=== PATIENT | male | born 1960 | race Caucasian/White ===

== ENCOUNTER 2016-10-07 22:08 | Outpatient (CLI) | payer BC | END 2016-10-07 22:09 | disposition home or self-care (01) | DX: C43.9 Malignant melanoma of skin, unspecified (principal) ==

== ENCOUNTER 2016-11-04 14:35 | Outpatient (CLI) | payer BC ==
[2016-11-04 14:57] LABS: BASOPHILS % (AUTO) 0.9 %; EOSINOPHILS # (AUTO) 0.1 10^3/uL (0.0-0.7); EOSINOPHILS % (AUTO) 1.2 %; HCT - HEMATOCRIT 40.7 % (42.0-52.0); LYMPHOCYTES # (AUTO) 1.1 10^3/uL (1.5-3.5); MEAN CORPUSCULAR HEMOGLOBIN 31.1 pg (27.0-31.0); MEAN CORPUSCULAR HGB CONC 34.5 g/dL (32.0-36.0); MEAN CORPUSCULAR VOLUME 90.3 fL (80.0-94.0); MEAN PLATELET VOLUME 8.8 fL (7.4-11.4); MONOCYTES # (AUTO) 0.4 10^3/uL (0.0-1.0); MONOCYTES % (AUTO) 9.2 %; NEUTROPHILS # (AUTO) 2.7 10^3/uL (1.5-6.6); NEUTROPHILS % (AUTO) 62.7 %; RED CELL DISTRIBUTION WIDTH 13.3 % (12.0-15.0); UNCORRECTED WHITE BLOOD COUNT 4.3 x10^3/uL; WHITE BLOOD COUNT 4.3 x10^3/uL (4.8-10.8)
[2016-11-04 15:11] LABS: BILIRUBIN,TOTAL 0.7 mg/dL (0.2-1.0); CALCIUM 9.4 mg/dL (8.5-10.3); CREATININE 0.9 mg/dL (0.6-1.2); POTASSIUM 4.7 mmol/L (3.5-5.0); TOTAL PROTEIN 6.7 g/dL (6.7-8.2)
== END 2016-11-04 14:36 | disposition home or self-care (01) ==
LOC: LAB 14:35
PROVIDERS: ATTEND Internal Medicine Hematology & Oncology
DX: C43.9 Malignant melanoma of skin, unspecified (principal)
CPT/HCPCS: 36415; 80053; 83735; 84443; 85025

== ENCOUNTER 2016-11-19 14:46 | Outpatient (CLI) | payer BC ==
[2016-11-19 18:13] LABS: ALBUMIN/GLOBULIN RATIO 1.9 (1.0-2.2); BILIRUBIN,TOTAL 0.8 mg/dL (0.2-1.0); CALCIUM 9.3 mg/dL (8.5-10.3); CREATININE 0.9 mg/dL (0.6-1.2); TOTAL PROTEIN 6.6 g/dL (6.7-8.2)
[2016-11-19 18:15] LABS: BILIRUBIN,URINE NEGATIVE (NEGATIVE); PH,URINE 6.5 PH (5.0-7.5)
[2016-11-19 18:31] LABS: BASOPHILS % (AUTO) 0.6 %; EOSINOPHILS # (AUTO) 0.1 10^3/uL (0.0-0.7); EOSINOPHILS % (AUTO) 1.3 %; HCT - HEMATOCRIT 41.9 % (42.0-52.0); HGB - HEMOGLOBIN 14.4 g/dL (14.0-18.0); LYMPHOCYTES # (AUTO) 1.1 10^3/uL (1.5-3.5); LYMPHOCYTES % (AUTO) 28.5 %; MEAN CORPUSCULAR HEMOGLOBIN 31.1 pg (27.0-31.0); MEAN CORPUSCULAR HGB CONC 34.3 g/dL (32.0-36.0); MEAN CORPUSCULAR VOLUME 90.6 fL (80.0-94.0); MEAN PLATELET VOLUME 9.2 fL (7.4-11.4); MONOCYTES # (AUTO) 0.3 10^3/uL (0.0-1.0); MONOCYTES % (AUTO) 8.3 %; NEUTROPHILS # (AUTO) 2.5 10^3/uL (1.5-6.6); NEUTROPHILS % (AUTO) 61.3 %; NUCLEATED RED BLOOD CELLS AUTO 0.1 /100WBC; RED BLOOD COUNT 4.63 10^6/uL (4.70-6.10); RED CELL DISTRIBUTION WIDTH 13.2 % (12.0-15.0)
[2016-11-19 19:10] LABS: WBC,URINE 0-3 /HPF (0-3)
== END 2016-11-19 14:47 | disposition home or self-care (01) ==
LOC: LAB.F 14:46
PROVIDERS: ATTEND Internal Medicine
DX: R53.83 Other fatigue (principal)
CPT/HCPCS: 36415; 80053; 81001; 84443; 85025

== ENCOUNTER 2016-12-30 15:35 | Outpatient (CLI) | payer BC | END 2016-12-30 15:36 | disposition home or self-care (01) | DX: C43.9 Malignant melanoma of skin, unspecified (principal) ==

== ENCOUNTER 2017-01-26 17:30 | Outpatient (CLI) | payer BC ==
[2017-01-26 17:51] LABS: BASOPHILS % (AUTO) 0.3 %; EOSINOPHILS % (AUTO) 0.6 %; HCT - HEMATOCRIT 40.6 % (42.0-52.0); HGB - HEMOGLOBIN 13.7 g/dL (14.0-18.0); LYMPHOCYTES # (AUTO) 1.1 10^3/uL (1.5-3.5); LYMPHOCYTES % (AUTO) 20.5 %; MEAN CORPUSCULAR HEMOGLOBIN 30.7 pg (27.0-31.0); MEAN CORPUSCULAR HGB CONC 33.8 g/dL (32.0-36.0); MEAN CORPUSCULAR VOLUME 90.8 fL (80.0-94.0); MEAN PLATELET VOLUME 8.4 fL (7.4-11.4); MONOCYTES # (AUTO) 0.4 10^3/uL (0.0-1.0); MONOCYTES % (AUTO) 8.7 %; NEUTROPHILS # (AUTO) 3.6 10^3/uL (1.5-6.6); NEUTROPHILS % (AUTO) 69.9 %; NUCLEATED RED BLOOD CELLS AUTO 0.1 /100WBC; RED BLOOD COUNT 4.47 10^6/uL (4.70-6.10); RED CELL DISTRIBUTION WIDTH 13.1 % (12.0-15.0); UNCORRECTED WHITE BLOOD COUNT 5.1 x10^3/uL; WHITE BLOOD COUNT 5.1 x10^3/uL (4.8-10.8)
[2017-01-26 18:02] LABS: BILIRUBIN,TOTAL 0.7 mg/dL (0.2-1.0); CALCIUM 8.9 mg/dL (8.5-10.3); CREATININE 0.9 mg/dL (0.6-1.2); POTASSIUM 4.2 mmol/L (3.5-5.0); TOTAL PROTEIN 6.3 g/dL (6.7-8.2)
== END 2017-01-26 17:31 | disposition home or self-care (01) ==
LOC: LAB 17:30
PROVIDERS: ATTEND Internal Medicine Hematology & Oncology
DX: C43.9 Malignant melanoma of skin, unspecified (principal)
CPT/HCPCS: 36415; 80053; 83735; 84443; 85025

== ENCOUNTER 2017-03-18 14:58 | Emergency (ER) | payer MEDICARE, OTHER ==
[2017-03-18 15:40] LABS: BASOPHILS % (AUTO) 0.3 %; EOSINOPHILS % (AUTO) 0.1 %; HCT - HEMATOCRIT 45.8 % (42.0-52.0); HGB - HEMOGLOBIN 15.4 g/dL (14.0-18.0); LYMPHOCYTES # (AUTO) 0.7 10^3/uL (1.5-3.5); LYMPHOCYTES % (AUTO) 9.6 %; MEAN CORPUSCULAR HEMOGLOBIN 30.3 pg (27.0-31.0); MEAN CORPUSCULAR HGB CONC 33.5 g/dL (32.0-36.0); MEAN CORPUSCULAR VOLUME 90.4 fL (80.0-94.0); MEAN PLATELET VOLUME 8.1 fL (7.4-11.4); MONOCYTES # (AUTO) 0.6 10^3/uL (0.0-1.0); MONOCYTES % (AUTO) 7.5 %; NEUTROPHILS # (AUTO) 6.4 10^3/uL (1.5-6.6); NEUTROPHILS % (AUTO) 82.5 %; RED BLOOD COUNT 5.07 10^6/uL (4.70-6.10); RED CELL DISTRIBUTION WIDTH 13.1 % (12.0-15.0); UNCORRECTED WHITE BLOOD COUNT 7.7 x10^3/uL; WHITE BLOOD COUNT 7.7 x10^3/uL (4.8-10.8)
[2017-03-18 15:51] LABS: ALBUMIN/GLOBULIN RATIO 1.8 (1.0-2.2); BILIRUBIN,TOTAL 1.3 mg/dL (0.2-1.0); CALCIUM 9.4 mg/dL (8.5-10.3); CREATININE 0.9 mg/dL (0.6-1.2); POTASSIUM 3.6 mmol/L (3.5-5.0); TOTAL PROTEIN 6.8 g/dL (6.7-8.2)
[2017-03-18] MEDS ORDERED: LIDOCAINE VISCOUS 2% 15 ML UDC MM STA (16:38)
[2017-03-18] MEDS ORDERED: MAG HYDROX/AL HYDROX/SIMETH 30 ML UDC PO STA (16:38)
--- NOTE | 2017-03-18 16:40 | ED Physician Documentation ---
PD HPI ABD PAIN - Stated complaint Stated Complaint: STOMACH PX - Chief complaint Chief Complaint: Abd Pain - History obtained from History obtained from: Patient - History of Present Illness Timing - onset: Other (56-year-old gentleman undergoing immunotherapy for melanoma, had a mesenteric metastasis that was removed a couple of years ago. Last night at 7 PM after a large meal developed severe sudden onset epigastric pain without radiation. It is a sharp burning pain that he had a few months ago and had a CT at that time that was negative and his doctor thought he had reflux.) Review of Systems Constitutional: denies: Fever, Chills Nose: denies: Rhinorrhea / runny nose, Congestion Cardiac: denies: Chest pain / pressure, Palpitations Respiratory: denies: Dyspnea, Cough GI: reports: Abdominal Pain, Nausea, Vomiting. denies: Constipation, Diarrhea, Hematemesis, Bloody / black stool PD PAST MEDICAL HISTORY - Past Medical History Past Medical History: Yes Cardiovascular: None Respiratory: None Neuro: None Endocrine/Autoimmune: None : None HEENT: None Psych: None Musculoskeletal: Osteoarthritis Other Past Medical History: melanoma since 2009 - Past Surgical History Past Surgical History: Yes General: Other - Present Medications Home Medications: Ambulatory Orders Medication Instructions Recorded Confirmed Immunotherapy Drug 03/18/17 - Allergies Allergies/Adverse Reactions: Allergies Allergy/AdvReac Type Severity Reaction Status Date / Time "narcotics" Allergy Unknown Uncoded 03/18/17 15:03 - Social History Does the pt smoke?: No Smoking Status: Never smoker Does the pt drink ETOH?: No Does the pt have substance abuse?: No - Immunizations Immunizations are current?: Yes - POLST Patient has POLST: No PD ED PE NORMAL - Vitals Vital signs reviewed: Yes - General General: Alert and oriented X 3, No acute distress - HEENT HEENT: Other (Left facial droop from prior melanoma surgery) - Cardiac Cardiac: RRR, No murmur - Respiratory Respiratory: No respiratory distress, Clear bilaterally - Abdomen Abdomen: Other (Minimally tender in the epigastrium without diffuse tenderness or surgical signs, soft with normal bowel tones.) - Back Back: No CVA TTP, No spinal TTP - Derm Derm: Normal color, Warm and dry - Extremities Extremities: No edema, No calf tenderness / cord - Neuro Neuro: Alert and oriented X 3, Normal speech Results - Vitals Vitals: Vital Signs - 24 hr 03/18/17 15:00 Temperature 36.6 C Heart Rate 77 Respiratory 18 Rate Blood Pressure 123/82 H O2 Saturation 99 Oxygen O2 Source Room air - Labs Labs: Laboratory Tests 03/18/17 03/18/17 15:30 15:30 WBC 7.7 RBC 5.07 Hgb 15.4 Hct 45.8 MCV 90.4 MCH 30.3 MCHC 33.5 RDW 13.1 Plt Count 229 MPV 8.1 Neut # 6.4 Lymph # 0.7 L [place] # 0.6 Eos # 0.0 Baso # 0.0 Absolute Nucleated RBC 0.00 Nucleated RBC % 0.0 Sodium 138 Potassium 3.6 Chloride 101 Carbon Dioxide 28 Anion Gap 9.0 BUN 22 H Creatinine 0.9 Estimated GFR (MDRD) 87 L Glucose 110 H Calcium 9.4 Total Bilirubin 1.3 H AST 19 ALT 20 Alkaline Phosphatase 54 Total Protein 6.8 Albumin 4.4 Globulin 2.4 Albumin/Globulin Ratio 1.8 Lipase 36 PD MEDICAL DECISION MAKING - ED course ED course: He has upper abdominal pain that is recurrent and seems most consistent with reflux. He was given a GI cocktail with significant improvement in his pain and he will continue the omeprazole, he declined other prescription pain medication. Departure - Departure Disposition: 01 Home, Self Care Clinical Impression: Gastritis Qualifiers: Gastritis type: unspecified gastritis Chronicity: acute Gastritis bleeding: without bleeding Qualified Code(s): K29.00 - Acute gastritis without bleeding Condition: Good Record reviewed to determine appropriate education?: Yes Instructions: ED Gastritis Comments: Continue the omeprazole, he should be better in another couple of days, return if worse. Call your doctor to arrange a follow-up appointment, make the next available appointment. In the interim, return anytime if worse or if new symptoms develop. Your blood pressure was elevated today on check into the emergency department. This does not mean that you have hypertension, it is a common phenomenon to come to the emergency department and have elevated blood pressure. I recommend that she see your primary care physician within the week to have it rechecked when you are feeling better.
[2017-03-18] MEDS ORDERED: LIDOCAINE VISCOUS 2% 15 ML UDC MM ONE (16:51)
[2017-03-18] MEDS ORDERED: MAG HYDROX/AL HYDROX/SIMETH 30 ML UDC ONE (16:51)
[2017-03-18] MEDS ORDERED: ONDANSETRON ODT 4 MG TABLET TL STA (17:06)
[2017-03-18 17:36] VITALS: BP 149/89
[2017-03-18] MEDS ORDERED: ONDANSETRON ODT 4 MG TABLET ONE (17:38)
== END 2017-03-18 17:38 | disposition home or self-care (01) ==
LOC: ED 14:58
DX: K29.00 Acute gastritis without bleeding (principal); C43.9 Malignant melanoma of skin, unspecified; Z85.89 Personal history of malignant neoplasm of other organs and systems; M19.90 Unspecified osteoarthritis, unspecified site; R03.0 Elevated blood-pressure reading, without diagnosis of hypertension
CPT/HCPCS: 36415; 80053; 83690; 85025; 99283; A9270; Q0162

== ENCOUNTER 2017-04-06 18:07 | Outpatient (CLI) | payer MEDICARE, OTHER ==
[2017-04-06 18:33] LABS: BASOPHILS % (AUTO) 0.7 %; EOSINOPHILS # (AUTO) 0.1 10^3/uL (0.0-0.7); EOSINOPHILS % (AUTO) 1.2 %; HCT - HEMATOCRIT 42.8 % (42.0-52.0); HGB - HEMOGLOBIN 14.1 g/dL (14.0-18.0); LYMPHOCYTES # (AUTO) 1.2 10^3/uL (1.5-3.5); LYMPHOCYTES % (AUTO) 24.6 %; MEAN CORPUSCULAR HEMOGLOBIN 30.5 pg (27.0-31.0); MEAN CORPUSCULAR VOLUME 92.2 fL (80.0-94.0); MEAN PLATELET VOLUME 8.5 fL (7.4-11.4); MONOCYTES # (AUTO) 0.5 10^3/uL (0.0-1.0); NEUTROPHILS # (AUTO) 3.1 10^3/uL (1.5-6.6); NEUTROPHILS % (AUTO) 63.5 %; RED BLOOD COUNT 4.64 10^6/uL (4.70-6.10); RED CELL DISTRIBUTION WIDTH 13.1 % (12.0-15.0); UNCORRECTED WHITE BLOOD COUNT 4.8 x10^3/uL; WHITE BLOOD COUNT 4.8 x10^3/uL (4.8-10.8)
[2017-04-06 18:43] LABS: ALBUMIN/GLOBULIN RATIO 1.8 (1.0-2.2); BILIRUBIN,TOTAL 0.8 mg/dL (0.2-1.0); CALCIUM 9.2 mg/dL (8.5-10.3); CREATININE 0.9 mg/dL (0.6-1.2); POTASSIUM 3.8 mmol/L (3.5-5.0); TOTAL PROTEIN 6.8 g/dL (6.7-8.2)
== END 2017-04-06 18:08 | disposition home or self-care (01) ==
LOC: LAB 18:07
PROVIDERS: ATTEND Internal Medicine Hematology & Oncology
DX: C43.9 Malignant melanoma of skin, unspecified (principal)
CPT/HCPCS: 36415; 80053; 85025

== ENCOUNTER 2017-05-18 21:35 | Outpatient (CLI) | payer MEDICARE, OTHER ==
[2017-05-18 21:53] LABS: BASOPHILS % (AUTO) 0.5 %; EOSINOPHILS % (AUTO) 0.9 %; HCT - HEMATOCRIT 41.3 % (42.0-52.0); HGB - HEMOGLOBIN 13.9 g/dL (14.0-18.0); LYMPHOCYTES % (AUTO) 19.7 %; MEAN CORPUSCULAR HEMOGLOBIN 30.8 pg (27.0-31.0); MEAN CORPUSCULAR HGB CONC 33.8 g/dL (32.0-36.0); MEAN CORPUSCULAR VOLUME 91.1 fL (80.0-94.0); MEAN PLATELET VOLUME 8.7 fL (7.4-11.4); MONOCYTES # (AUTO) 0.5 10^3/uL (0.0-1.0); MONOCYTES % (AUTO) 9.6 %; NEUTROPHILS # (AUTO) 3.7 10^3/uL (1.5-6.6); NEUTROPHILS % (AUTO) 69.3 %; RED BLOOD COUNT 4.53 10^6/uL (4.70-6.10); UNCORRECTED WHITE BLOOD COUNT 5.3 x10^3/uL; WHITE BLOOD COUNT 5.3 x10^3/uL (4.8-10.8)
[2017-05-18 22:05] LABS: ALBUMIN/GLOBULIN RATIO 1.7 (1.0-2.2); BILIRUBIN,TOTAL 0.7 mg/dL (0.2-1.0); CREATININE 0.9 mg/dL (0.6-1.2); POTASSIUM 3.8 mmol/L (3.5-5.0); TOTAL PROTEIN 6.3 g/dL (6.7-8.2)
== END 2017-05-18 21:36 | disposition home or self-care (01) ==
LOC: LAB 21:35
PROVIDERS: ATTEND Internal Medicine Hematology & Oncology
DX: C43.9 Malignant melanoma of skin, unspecified (principal)
CPT/HCPCS: 80053; 83735; 84443; 85025

== ENCOUNTER 2017-09-03 16:47 | Outpatient (CLI) | payer MEDICARE, OTHER ==
[2017-09-03 17:31] LABS: ALBUMIN 4.1 g/dL (3.2-5.5); ALBUMIN/GLOBULIN RATIO 1.9 (1.0-2.2); BILIRUBIN,TOTAL 0.7 mg/dL (0.2-1.0); CALCIUM 8.6 mg/dL (8.5-10.3); CREATININE 0.9 mg/dL (0.6-1.2); TOTAL PROTEIN 6.3 g/dL (6.7-8.2)
== END 2017-09-03 16:48 | disposition home or self-care (01) ==
LOC: LAB 16:47
DX: C43.30 Malignant melanoma of unspecified part of face (principal)
CPT/HCPCS: 36415; 80053

== ENCOUNTER 2018-03-15 18:53 | Outpatient (CLI) | payer MEDICARE, OTHER ==
[2018-03-15 19:14] LABS: BASOPHILS % (AUTO) 0.9 %; EOSINOPHILS % (AUTO) 0.9 %; HGB - HEMOGLOBIN 13.4 g/dL (14.0-18.0); LYMPHOCYTES # (AUTO) 0.8 10^3/uL (1.5-3.5); LYMPHOCYTES % (AUTO) 20.8 %; MEAN CORPUSCULAR HEMOGLOBIN 31.4 pg (27.0-31.0); MEAN CORPUSCULAR HGB CONC 34.3 g/dL (32.0-36.0); MEAN CORPUSCULAR VOLUME 91.4 fL (80.0-94.0); MONOCYTES # (AUTO) 0.3 10^3/uL (0.0-1.0); MONOCYTES % (AUTO) 8.6 %; NEUTROPHILS # (AUTO) 2.8 10^3/uL (1.5-6.6); NEUTROPHILS % (AUTO) 68.8 %; PLT - PLATELET COUNT 216 10^3/uL (130-450); RED BLOOD COUNT 4.27 10^6/uL (4.70-6.10); RED CELL DISTRIBUTION WIDTH 13.2 % (12.0-15.0)
[2018-03-15 19:26] LABS: ALBUMIN 3.9 g/dL (3.2-5.5); ALBUMIN/GLOBULIN RATIO 1.9 (1.0-2.2); ALKALINE PHOSPHATASE 50 IU/L (42-121); ALT ALANINE AMINOTRANSFERASE 19 IU/L (10-60); AST ASPARTATE AMINOTRANSFERASE 23 IU/L (10-42); BILIRUBIN,TOTAL 0.6 mg/dL (0.2-1.0); BUN - BLOOD UREA NITROGEN 14 mg/dL (6-20); CALCIUM 8.9 mg/dL (8.5-10.3); CARBON DIOXIDE - CO2 30 mmol/L (21-32); CHLORIDE 102 mmol/L (101-111); GFR - MDRD 77 (>89); GLUCOSE 80 mg/dL (70-100); SODIUM 141 mmol/L (135-145)
== END 2018-03-15 18:54 | disposition home or self-care (01) ==
LOC: LAB 18:53
PROVIDERS: ATTEND Internal Medicine Hematology & Oncology
DX: C43.30 Malignant melanoma of unspecified part of face (principal)
CPT/HCPCS: 36415; 80053; 84443; 85025

== ENCOUNTER 2018-05-24 15:23 | Outpatient (CLI) | payer MEDICARE, OTHER ==
[2018-05-24 18:14] LABS: ALBUMIN 4.1 g/dL (3.2-5.5); ALBUMIN/GLOBULIN RATIO 1.8 (1.0-2.2); BILIRUBIN,TOTAL 0.9 mg/dL (0.2-1.0); CREATININE 0.9 mg/dL (0.6-1.2); TOTAL PROTEIN 6.4 g/dL (6.7-8.2)
[2018-05-24 19:37] LABS: BASOPHILS % (AUTO) 0.6 %; EOSINOPHILS % (AUTO) 0.7 %; HGB - HEMOGLOBIN 13.7 g/dL (14.0-18.0); LYMPHOCYTES % (AUTO) 22.6 %; MEAN CORPUSCULAR HGB CONC 33.3 g/dL (32.0-36.0); MEAN PLATELET VOLUME 9.1 fL (7.4-11.4); MONOCYTES # (AUTO) 0.4 10^3/uL (0.0-1.0); MONOCYTES % (AUTO) 8.8 %; NEUTROPHILS # (AUTO) 2.9 10^3/uL (1.5-6.6); NEUTROPHILS % (AUTO) 67.3 %; PLT - PLATELET COUNT 197 10^3/uL (130-450); RED BLOOD COUNT 4.44 10^6/uL (4.70-6.10); RED CELL DISTRIBUTION WIDTH 13.1 % (12.0-15.0); WHITE BLOOD COUNT 4.3 x10^3/uL (4.8-10.8)
== END 2018-05-24 15:24 | disposition home or self-care (01) ==
LOC: LAB.F 15:23
DX: Z51.11 Encounter for antineoplastic chemotherapy (principal); C43.30 Malignant melanoma of unspecified part of face
CPT/HCPCS: 36415; 80053; 85025

== ENCOUNTER 2018-06-07 17:03 | Outpatient (CLI) | payer MEDICARE, OTHER ==
[2018-06-07 17:21] LABS: BASOPHILS % (AUTO) 0.6 %; EOSINOPHILS % (AUTO) 0.9 %; HGB - HEMOGLOBIN 14.5 g/dL (14.0-18.0); LYMPHOCYTES # (AUTO) 1.1 10^3/uL (1.5-3.5); LYMPHOCYTES % (AUTO) 22.5 %; MEAN CORPUSCULAR HEMOGLOBIN 30.9 pg (27.0-31.0); MEAN CORPUSCULAR HGB CONC 33.4 g/dL (32.0-36.0); MEAN CORPUSCULAR VOLUME 92.5 fL (80.0-94.0); MEAN PLATELET VOLUME 8.4 fL (7.4-11.4); MONOCYTES # (AUTO) 0.5 10^3/uL (0.0-1.0); MONOCYTES % (AUTO) 9.2 %; NEUTROPHILS # (AUTO) 3.3 10^3/uL (1.5-6.6); NEUTROPHILS % (AUTO) 66.8 %; PLT - PLATELET COUNT 208 10^3/uL (130-450); RED BLOOD COUNT 4.69 10^6/uL (4.70-6.10); RED CELL DISTRIBUTION WIDTH 13.2 % (12.0-15.0); WHITE BLOOD COUNT 4.9 x10^3/uL (4.8-10.8)
[2018-06-07 17:33] LABS: ALBUMIN 4.3 g/dL (3.2-5.5); ALBUMIN/GLOBULIN RATIO 1.9 (1.0-2.2); BILIRUBIN,TOTAL 0.7 mg/dL (0.2-1.0); TOTAL PROTEIN 6.6 g/dL (6.7-8.2)
== END 2018-06-07 17:04 | disposition home or self-care (01) ==
LOC: LAB 17:03
PROVIDERS: ATTEND Internal Medicine Hematology
DX: C43.30 Malignant melanoma of unspecified part of face (principal); Z51.11 Encounter for antineoplastic chemotherapy
CPT/HCPCS: 36415; 80053; 85025

== ENCOUNTER 2018-07-19 09:07 | Outpatient (CLI) | payer MEDICARE, OTHER ==
[2018-07-19 17:43] LABS: BASOPHILS % (AUTO) 0.5 %; EOSINOPHILS % (AUTO) 1.3 %; LYMPHOCYTES # (AUTO) 0.8 10^3/uL (1.5-3.5); LYMPHOCYTES % (AUTO) 25.6 %; MEAN CORPUSCULAR HEMOGLOBIN 30.9 pg (27.0-31.0); MEAN CORPUSCULAR HGB CONC 33.1 g/dL (32.0-36.0); MEAN CORPUSCULAR VOLUME 93.3 fL (80.0-94.0); MEAN PLATELET VOLUME 9.3 fL (7.4-11.4); MONOCYTES # (AUTO) 0.4 10^3/uL (0.0-1.0); MONOCYTES % (AUTO) 11.4 %; NEUTROPHILS # (AUTO) 1.9 10^3/uL (1.5-6.6); NEUTROPHILS % (AUTO) 61.2 %; PLT - PLATELET COUNT 172 10^3/uL (130-450); RED BLOOD COUNT 4.52 10^6/uL (4.70-6.10); RED CELL DISTRIBUTION WIDTH 13.1 % (12.0-15.0); WHITE BLOOD COUNT 3.1 x10^3/uL (4.8-10.8)
[2018-07-19 17:58] LABS: ALBUMIN 3.7 g/dL (3.2-5.5); ALBUMIN/GLOBULIN RATIO 1.6 (1.0-2.2); BILIRUBIN,TOTAL 0.6 mg/dL (0.2-1.0); CALCIUM 8.6 mg/dL (8.5-10.3)
== END 2018-07-19 09:08 | disposition home or self-care (01) ==
LOC: LAB.F 09:07
DX: C43.30 Malignant melanoma of unspecified part of face (principal); D89.89 Other specified disorders involving the immune mechanism, not elsewhere classified
CPT/HCPCS: 36415; 80053; 84443; 85025

== ENCOUNTER 2018-08-16 12:38 | Outpatient (CLI) | payer MEDICARE, OTHER ==
[2018-08-16 18:43] LABS: BASOPHILS % (AUTO) 0.5 %; EOSINOPHILS % (AUTO) 0.7 %; LYMPHOCYTES % (AUTO) 18.7 %; MEAN CORPUSCULAR HEMOGLOBIN 30.9 pg (27.0-31.0); MEAN CORPUSCULAR VOLUME 93.5 fL (80.0-94.0); MONOCYTES # (AUTO) 0.4 10^3/uL (0.0-1.0); MONOCYTES % (AUTO) 8.6 %; NEUTROPHILS # (AUTO) 3.6 10^3/uL (1.5-6.6); NEUTROPHILS % (AUTO) 71.5 %; PLT - PLATELET COUNT 196 10^3/uL (130-450); RED BLOOD COUNT 4.53 10^6/uL (4.70-6.10); RED CELL DISTRIBUTION WIDTH 13.4 % (12.0-15.0); WHITE BLOOD COUNT 5.1 x10^3/uL (4.8-10.8)
[2018-08-16 18:45] LABS: ALBUMIN/GLOBULIN RATIO 1.7 (1.0-2.2); BILIRUBIN,TOTAL 0.8 mg/dL (0.2-1.0); CALCIUM 8.9 mg/dL (8.5-10.3); CREATININE 0.9 mg/dL (0.6-1.2); TOTAL PROTEIN 6.4 g/dL (6.7-8.2)
== END 2018-08-16 12:39 | disposition home or self-care (01) ==
LOC: LAB.F 12:38
PROVIDERS: ATTEND Internal Medicine
DX: C43.30 Malignant melanoma of unspecified part of face (principal); D89.89 Other specified disorders involving the immune mechanism, not elsewhere classified
CPT/HCPCS: 36415; 80053; 84443; 85025

== ENCOUNTER 2019-03-01 08:37 | Emergency (ER) | payer MEDICARE, OTHER ==
[2019-03-01 10:05] VITALS: BP 119/78
--- NOTE | 2019-03-01 10:43 | ED Physician Documentation ---
PD HPI MALE - Stated complaint Stated Complaint: BODY PX - Chief complaint Chief Complaint: Abd Pain - History obtained from History obtained from: Patient - History of Present Illness Timing - onset: How many days ago (10) Timing - duration: Days (10) Timing - details: Gradual onset, Still present Associated symptoms: Testiclar pain, Scrotal swelling. No: Dysuria, Urinary frequency, Unable to urinate, Hematuria, Discharge, Genital sore / lesion, Abdominal pain, Back pain, Indwelling catheter PD HPI MALE CONTRIB FACTORS: Not sexually active Similar symptoms before: Has not had sx before Recently seen: Not recently seen - Additional information Additional information: 58-year-old male with a 10-year history of melanoma has been undergoing immunotherapy and had his last immunotherapy in September of this year. He is now developed some swelling and tenderness to his testicle it is now moved to the right side from the left side and he is not having other specific symptoms. He denies any discharge denies any urinary urgency or frequency. Review of Systems Constitutional: denies: Fever Eyes: denies: Decreased vision Ears: denies: Ear pain Nose: denies: Congestion Throat: denies: Sore throat Cardiac: denies: Chest pain / pressure Respiratory: denies: Dyspnea, Cough GI: reports: Abdominal Pain, Diarrhea. denies: Nausea, Vomiting : denies: Dysuria, Frequency PD PAST MEDICAL HISTORY - Past Medical History Cardiovascular: None Respiratory: None Endocrine/Autoimmune: None : None HEENT: None Psych: None Musculoskeletal: Osteoarthritis - Past Surgical History Past Surgical History: Yes General: Other - Present Medications Home Medications: Ambulatory Orders Medication Instructions Recorded Confirmed Immunotherapy Drug 03/18/17 Doxycycline Hyclate 100 mg PO BID #20 capsule 03/01/19 - Allergies Allergies/Adverse Reactions: Allergies Allergy/AdvReac Type Severity Reaction Status Date / Time "narcotics" Allergy Unknown Uncoded 03/18/17 15:03 - Social History Does the pt smoke?: No Smoking Status: Never smoker Does the pt drink ETOH?: No Does the pt have substance abuse?: No - Immunizations Immunizations are current?: Yes - POLST Patient has POLST: No PD ED PE NORMAL - Vitals Vital signs reviewed: Yes (normal ) - General General: Alert and oriented X 3, No acute distress, Well developed/nourished - HEENT HEENT: Atraumatic, PERRL, EOMI - Respiratory Respiratory: No respiratory distress - Male Male : Other (There is swelling to the right epididymal appendix and there is some swelling without tenderness to the left epididymal appendix) - Derm Derm: Normal color, Warm and dry, No rash - Extremities Extremities: No deformity, No edema - Neuro Neuro: Alert and oriented X 3, appeals and generalist clerk 2-12 intact, No motor deficit, No sensory deficit, Normal speech Eye Opening: Spontaneous Motor: Obeys Commands Verbal: Oriented GCS Score: 15 - Psych Psych: Normal mood, Normal affect Results - Vitals Vitals: Vital Signs - 24 hr 03/01/19 03/01/19 08:44 10:03 Temperature 36.5 C Heart Rate 80 62 Respiratory 14 16 Rate Blood Pressure 123/67 119/78 O2 Saturation 100 96 Oxygen O2 Source Room air - Labs Labs: Laboratory Tests 03/01/19 10:00 Urine Color YELLOW Urine Clarity CLEAR Urine pH 6.5 Ur Specific [place] 1.020 Urine Protein NEGATIVE Urine Glucose (UA) NEGATIVE Urine Ketones TRACE Urine Occult Blood NEGATIVE Urine Nitrite NEGATIVE Urine Bilirubin NEGATIVE Urine Urobilinogen 1 (NORMAL) Ur Leukocyte Esterase NEGATIVE Ur Microscopic Review NOT INDICATED Urine Culture Comments NOT INDICATED - Rads (name of study) ultrasound testicle Radiology: Prelim report reviewed (Impression 1. Microlithiasis. The patient has risk factors for testicular cancer referral to urologist for evaluation and determination of optimal follow-up strategies recommended. In absence of risk factors for testicular cancer no further radiologic evaluation needed. Small left epididymal cyst small left varicocele small bilateral hydroceles.), EMP read indepedently, See rad report PD MEDICAL DECISION MAKING - ED course Complexity details: reviewed results, re-evaluated patient, considered differential, d/w patient ED course: 58-year-old male with stage IV melanoma has developed right testicular pain he does have some tenderness to the epididymis and he is requested imaging procedures to be done. The imaging is concerning for the possibility of testicular cancer and this is shared with the patient we will treat him with some doxycycline and have him follow-up with a urologist. Departure - Departure Disposition: 01 Home, Self Care Clinical Impression: Acute epididymitis Condition: Stable Instructions: ED Epididymitis Follow-Up: Satish Pope MD [Primary Care Provider] - Mike Greenfield MD [Physician No Access] - Cathleen Schroeder MD [Physician No Access] - Prescriptions: Doxycycline Hyclate 100 mg PO BID #20 capsule Comments: Today there are subtle findings on your ultrasound concerning for the possibility of testicular cancer and follow-up with urologist as recommended.
[2019-03-01 11:12] LABS: BILIRUBIN,URINE NEGATIVE (NEGATIVE); GLUCOSE, URINE (UA) NEGATIVE (NEGATIVE); KETONES,URINE (UA) TRACE mg/dL (NEGATIVE); LEUKOCYTE ESTERASE, URINE NEGATIVE (NEGATIVE); NITRITE,URINE NEGATIVE (NEGATIVE); OCCULT BLOOD,URINE NEGATIVE (NEGATIVE); PH,URINE 6.5 PH (5.0-7.5); PROTEIN,URINE NEGATIVE (NEGATIVE); UROBILINOGEN,URINE 1 (NORMAL) E.U./dL (NORMAL)
[2019-03-01 11:14] LABS: CLARITY,URINE CLEAR (CLEAR)
--- NOTE | 2019-03-01 11:31 | Ultrasound Report ---
Reason: right testicle pain swelling Procedure Date: 03/01/2019 Accession Number: [id number] / [id number] Procedure: US - Testicle w/Doppler Limited CPT Code: FULL RESULT: EXAM: SCROTAL ULTRASOUND EXAM DATE: 03/01/2019 11:18 AM. CLINICAL HISTORY: Right testicle pain swelling. COMPARISON: None. TECHNIQUE: Real-time scanning was performed with static images obtained. Color-flow images were utilized. FINDINGS: Right: Testis: 6.1 x 2.7 x 4.1 cm. Normal size . Microlithiasis . No mass, or abnormal blood flow. Epididymis: 3.2 x 1.1 x 1 cm. Normal size and echotexture. No mass or abnormal blood flow. Hydrocele: Small Varicocele: None. Left: Testis: 5.7 x 2.3 x 4.3 cm. Normal size and . Microlithiasis. No mass, or abnormal blood flow. Epididymis: 2.8 x 1.1 x 1.5 cm. 0.3 cm epididymal cyst Normal size and echotexture. No mass or abnormal blood flow. Hydrocele: Small Varicocele: Small IMPRESSION: 1. Microlithiasis. If the patient has risk factors for testicular cancer referral to urologist for evaluation and determination of an optimal follow-up strategies recommended. In the absence of risk factors for testicular cancer no further radiological evaluation needed. 2. Small left epididymal cyst. Small left varicocele 3. Small bilateral hydroceles RADIA
== END 2019-03-01 12:01 | disposition home or self-care (01) ==
LOC: ED 08:37
DX: N45.1 Epididymitis (principal); N50.3 Cyst of epididymis; N43.3 Hydrocele, unspecified; Z85.820 Personal history of malignant melanoma of skin
CPT/HCPCS: 76870; 81001; 81003; 87086; 93976; 99284

== ENCOUNTER 2019-04-04 22:51 | Emergency (ER) | payer MEDICARE, OTHER ==
--- NOTE | 2019-04-04 23:28 | ED Physician Documentation ---
PD HPI NVD - Stated complaint Stated Complaint: ABD PX/CHILLS/NAUSEA - Chief complaint Chief Complaint: Abd Pain - History obtained from History obtained from: Patient - History of Present Illness Timing - onset: How many hours ago (4-5) Timing - duration: Hours (4-5) Timing - details: Abrupt onset, Still present (After dinner he had an onset of feeling nausea and upper abdominal fullness. He thought it was an irritated stomach of gastritis and tried some antacid without any improvement. He had an episode of vomiting without any noted blood. He continues with a crampy feeling and fullness as well as nausea.) Associated symptoms: Abdominal pain, Loss of appetite. No: Fever, Hematemesis Contributing factors: No: Sick contact, Bad food, Travel Similar symptoms before: No diagnosis (He has had episodes similar to this intermittently in the past. Has happened a few times over the past several months will come on an onset commonly after eating to be associated with the same upper abdominal fullness and nausea with some vomiting. He will have some antacids and clear fluids and soft food and typically will resolve in about a day. He had been diagnosed with gastritis at one point in the past and felt similar so he presumed it was irritation from eating. There is no prior history of gallbladder problems. He has had prior mesenteric melanoma resection with a partial small bowel resection several years ago without any recurrence of tumor.) Recently seen: Not recently seen Review of Systems Constitutional: denies: Fever, Chills Nose: denies: Rhinorrhea / runny nose, Congestion Throat: denies: Sore throat Cardiac: denies: Chest pain / pressure Respiratory: denies: Dyspnea, Cough GI: reports: Abdominal Pain, Nausea, Vomiting. denies: Abdominal Swelling, Constipation, Diarrhea : denies: Dysuria, Frequency PD PAST MEDICAL HISTORY - Past Medical History Past Medical History: Yes Cardiovascular: None Respiratory: None Neuro: None Endocrine/Autoimmune: None GI: None : None HEENT: None Psych: None Musculoskeletal: Osteoarthritis Derm: Other Other Past Medical History: melonoma - Past Surgical History Past Surgical History: Yes General: Other - Present Medications Home Medications: Ambulatory Orders Medication Instructions Recorded Confirmed Immunotherapy Drug 03/18/17 Doxycycline Hyclate 100 mg PO BID #20 capsule 03/01/19 Famotidine 20 mg PO DAILY #30 tablet 04/05/19 Lidocaine Viscous 2% [Xylocaine 5 ml PO Q4H PRN #100 ml 04/05/19 Viscous 2%] Ondansetron Odt [Zofran] 4 mg TL Q6H PRN #20 tablet 04/05/19 - Allergies Allergies/Adverse Reactions: Allergies Allergy/AdvReac Type Severity Reaction Status Date / Time "narcotics" Allergy Unknown Uncoded 03/18/17 15:03 - Social History Does the pt smoke?: No Smoking Status: Never smoker Does the pt drink ETOH?: Yes Does the pt have substance abuse?: No - Immunizations Immunizations are current?: Yes - POLST Patient has POLST: No PD ED PE NORMAL - Vitals Vital signs reviewed: Yes - General General: Alert and oriented X 3, No acute distress, Well developed/nourished - HEENT HEENT: Pharynx benign - Neck Neck: Supple, no meningeal sign, No adenopathy - Cardiac Cardiac: RRR, No murmur - Respiratory Respiratory: Clear bilaterally - Abdomen Abdomen: Soft, Non distended, No organomegaly, Other (The patient has tenderness in the epigastric area without any guarding percussion or rebound tenderness. Bowel sounds are hyperactive but not tympanitic in the upper abdomen. Lower abdomen bowel sounds are normally present. The right upper quadrant itself is not particularly tender and there is a negative Rubalcava sign. There is no CVA tenderness.) - Male Male : Deferred - Rectal Rectal: Deferred - Back Back: No CVA TTP - Derm Derm: Normal color - Extremities Extremities: No tenderness to palpate, Normal ROM s pain, No edema, No calf tenderness / cord - Neuro Neuro: Alert and oriented X 3, No motor deficit, Normal speech Results - Vitals Vitals: Vital Signs - 24 hr 04/04/19 04/05/19 04/05/19 23:01 01:56 04:07 Temperature 36.8 C 36.8 C Heart Rate 79 75 74 Respiratory 18 16 16 Rate Blood Pressure 137/82 H 142/67 H 128/69 O2 Saturation 99 98 93 04/05/19 06:08 Temperature 37.0 C Heart Rate 76 Respiratory 16 Rate Blood Pressure 117/70 O2 Saturation 96 Oxygen O2 Source Room air - Labs Labs: Laboratory Tests 04/05/19 04/05/19 00:20 00:20 WBC 9.1 RBC 4.45 L Hgb 13.7 L Hct 41.0 L MCV 92.1 MCH 30.8 MCHC 33.4 RDW 12.6 Plt Count 177 MPV 10.5 Neut # (Auto) 7.7 H Lymph # (Auto) 0.6 L [place] # (Auto) 0.6 Eos # (Auto) 0.0 Baso # (Auto) 0.0 Absolute Nucleated RBC 0.00 Nucleated RBC % 0.0 Sodium 140 Potassium 3.5 Chloride 102 Carbon Dioxide 27 Anion Gap 11.0 BUN 23 H Creatinine 0.9 Estimated GFR (MDRD) 87 L Glucose 120 H Calcium 9.2 Total Bilirubin 0.7 AST 22 ALT 20 Alkaline Phosphatase 44 Total Protein 6.3 L Albumin 3.9 Globulin 2.4 Albumin/Globulin Ratio 1.6 Lipase 28 - Rads (name of study) abd CT Radiology: Prelim report reviewed (Partial small bowel obstruction with transition around the mid small bowel. Is around the area of his anastomosis. There is moderate amount of stool just distal to that.), See rad report PD MEDICAL DECISION MAKING - ED course Complexity details: reviewed results (The CT was consistent with a likely partial small bowel obstruction. However subsequent to the CT scan he was actually feeling improved enough to drink fluids and feel comfortable with less nausea. Shared decision was to try going home with treatment there.), re- evaluated patient (The patient did feel better with antiemetic and fluids. He did actually feel better with a GI cocktail as well. However he still has some nausea and a feeling of fullness in the upper abdomen. We discussed further testing with him. Initially he was thinking he would try just going home but then had some increased nausea again. We opted on CT scan to evaluate for partial obstruction as well as gallstones or pancreatic or other conditions as well.), considered differential (He had had similar episodes in the past lasting though it would resolve with some antacids and just clear fluids. He had presumed it was gastritis. There is no history of gallbladder problems in the past. However he has had previous abdominal surgery and has some increased bowel sounds in the upper abdomen. There is no distention per se. Consideration could also be a partial bowel obstruction. Will give IV fluids and medications and reassess after some lab tests as well. Deferred imaging initially to see if he just improves.), d/w patient Departure - Departure Disposition: 01 Home, Self Care Clinical Impression: Upper abdominal pain, Partial obstruction of small intestine Nausea and vomiting Qualifiers: Vomiting type: unspecified Vomiting Intractability: non-intractable Qualified Code(s): R11.2 - Nausea with vomiting, unspecified Condition: Stable Record reviewed to determine appropriate education?: Yes Instructions: ED Abdominal Pain Adhesions Follow-Up: Satish Pope MD [Primary Care Provider] - Prescriptions: Famotidine 20 mg PO DAILY #30 tablet Lidocaine Viscous 2% [Xylocaine Viscous 2%] 5 ml PO Q4H PRN #100 ml PRN Reason: Pain Ondansetron Odt [Zofran] 4 mg TL Q6H PRN #20 tablet PRN Reason: Nausea / Vomiting Comments: Your blood tests appear normal so no suggestion of pancreas or liver problems. Your white count is normal so not suggesting an acute infection. There may be some irritation of the stomach (gastritis). Continue with some antacids and bland food and add lidocaine if needed periodically. However the Main problem is a partial blockage of the intestinal flow. This can be from some food stagnation around the prior anastomosis or it can be some scar tissue kinking the flow of the intestine. You seemed to be improving here so this may be treatable at home with clear liquid diet and bland foods for the rest of the day along with adding a dose of MiraLAX 2-3 times through the day to improve intestinal flow. Add ondansetron if needed for nausea. Famotidine acid reducing medicine daily for the next week or two. Recheck if not improved well over the course of the day and return if worsening (Increased nausea, repetitive vomiting, abdominal pain or distention, fevers, other concerns). Discharge Date/Time: 04/05/19 06:41
[2019-04-05] MEDS ORDERED: LIDOCAINE VISCOUS 2% 15 ML UDC MM STA ×2 (00:07→02:06)
[2019-04-05] MEDS ORDERED: ONDANSETRON 4 MG/2 ML VIAL IVP STA ×2 (00:07→02:38)
[2019-04-05] MEDS ORDERED: MORPHINE 10 MG/ML VIAL IVP STA (00:07)
[2019-04-05] MEDS ORDERED: MAG HYDROX/AL HYDROX/SIMETH 30 ML UDC PO STA ×2 (00:07→02:06)
[2019-04-05] MEDS ORDERED: SODIUM CHLORIDE 0.9% 1,000 ML IV ONE ×2 (00:07→03:54)
[2019-04-05 00:31] LABS: BASOPHILS % (AUTO) 0.3 %; EOSINOPHILS % (AUTO) 0.1 %; HGB - HEMOGLOBIN 13.7 g/dL (14.0-18.0); LYMPHOCYTES # (AUTO) 0.6 10^3/uL (1.5-3.5); LYMPHOCYTES % (AUTO) 6.9 %; MEAN CORPUSCULAR HEMOGLOBIN 30.8 pg (27.0-31.0); MEAN CORPUSCULAR HGB CONC 33.4 g/dL (32.0-36.0); MEAN CORPUSCULAR VOLUME 92.1 fL (80.0-94.0); MEAN PLATELET VOLUME 10.5 fL (7.4-11.4); MONOCYTES # (AUTO) 0.6 10^3/uL (0.0-1.0); MONOCYTES % (AUTO) 6.9 %; NEUTROPHILS # (AUTO) 7.7 10^3/uL (1.5-6.6); NEUTROPHILS % (AUTO) 85.4 %; PLT - PLATELET COUNT 177 10^3/uL (130-450); RED BLOOD COUNT 4.45 10^6/uL (4.70-6.10); RED CELL DISTRIBUTION WIDTH 12.6 % (12.0-15.0); WHITE BLOOD COUNT 9.1 x10^3/uL (4.8-10.8)
[2019-04-05 00:45] LABS: ALBUMIN 3.9 g/dL (3.2-5.5); ALBUMIN/GLOBULIN RATIO 1.6 (1.0-2.2); BILIRUBIN,TOTAL 0.7 mg/dL (0.2-1.0); CALCIUM 9.2 mg/dL (8.5-10.3); CREATININE 0.9 mg/dL (0.6-1.2); TOTAL PROTEIN 6.3 g/dL (6.7-8.2)
[2019-04-05] MEDS ORDERED: IOVERSOL 320 100 ML VIAL IVP ONE ×2 (03:15→03:52)
[2019-04-05] MEDS ORDERED: ACETAMINOPHEN 325 MG TABLET PO STA (04:10)
--- NOTE | 2019-04-05 04:17 | CT Report ---
Reason: upper abd pain and nausea Procedure Date: 04/05/2019 Accession Number: [id number] / [id number] Procedure: CT - Abdomen/Pelvis W CPT Code: FULL RESULT: EXAM: CT ABDOMEN AND PELVIS EXAM DATE: 04/05/2019 03:35 AM. CLINICAL HISTORY: Upper abd pain and nausea. History of metastatic melanoma. COMPARISONS: ABDOMEN/PELVIS W/ 06/04/2013 11:[address] WHOLE BODY 04/01/2019 9:48 AM. TECHNIQUE: Routine helical CT imaging was performed through the abdomen and pelvis. IV contrast: 100 mL Optiray 320. Enteric contrast: No. Reconstructions: Coronal and sagittal. In accordance with CT protocol optimization, one or more of the following dose reduction techniques were utilized for this exam: automated exposure control, adjustment of mA and/or KV based on patient size, or use of iterative reconstructive technique. FINDINGS: Lung Bases: Unremarkable. Liver: Normal. No masses. Gallbladder/Bile Ducts: Unremarkable. Spleen: Normal. Pancreas: Normal. Adrenal Glands: Normal. Kidneys: Normal. No masses or hydronephrosis. Peritoneal Cavity/Bowel: No dilated loops of proximal small bowel including before and after the enteroenteric anastomosis with a transition point in the left midabdomen; image 50 series 4. The small bowel distal to the transition point is decompressed; however, moderate amount of stool seen throughout the colon. In addition, the stomach is distended with fluid and the stomach and proximal small bowel wall is thickened and hyperemic. No free fluid, free air or adenopathy. No masses. The appendix is not visualized. Pelvic Organs: Normal. The bladder and visualized pelvic organs are within normal limits. Vasculature: No aneurysms or other significant abnormality. Bones: No significant abnormality. Other: Postsurgical changes in the left posterior chest wall. IMPRESSION: Findings which likely reflect an early mechanical proximal small bowel obstruction with transition point in the left midabdomen. Diffusely thickened and hyperemic stomach wall and wall of the proximal small bowel may reflect inflammation such as mucositis or infection. RAD[facility]
[2019-04-05] MEDS ORDERED: POLYETHYLENE GLYCOL 3350 17 GM PACKET PO STA (04:53)
[2019-04-05 06:09] VITALS: BP 117/70
[2019-04-05] MEDS ORDERED: ONDANSETRON ODT 4 MG Prepack 2 TL PRN (06:18)
== END 2019-04-05 06:41 | disposition home or self-care (01) ==
LOC: ED 22:51
DX: K56.600 Partial intestinal obstruction, unspecified as to cause (principal); R11.2 Nausea with vomiting, unspecified; Z90.49 Acquired absence of other specified parts of digestive tract; Z85.820 Personal history of malignant melanoma of skin
CPT/HCPCS: 36415; 74177; 80053; 83690; 85025; 96361; 96374; 96376; 99284; A9270; Q9967

== ENCOUNTER 2020-07-06 21:56 | Outpatient (CLI) | payer MEDICARE, OTHER | END 2020-07-06 21:57 | disposition critical access hospital (66) | LOC: EMS 21:56 | PROVIDERS: ATTEND Surgery | DX: R42 Dizziness and giddiness (principal); R11.0 Nausea | CPT/HCPCS: A0425; A0427 ==

== ENCOUNTER 2020-07-06 22:21 | Emergency (ER) | payer MEDICARE, OTHER ==
[2020-07-06] MEDS ORDERED: MECLIZINE 12.5 MG TABLET PO STA (22:31)
[2020-07-06] MEDS ORDERED: DEXAMETHASONE 10 MG/ML VIAL IVP STA (22:31)
[2020-07-06] MEDS ORDERED: SODIUM CHLORIDE 0.9% 1,000 ML IV STA (22:31)
--- NOTE | 2020-07-06 22:34 | ED Physician Documentation ---
History of Present Illness - Stated complaint Stated Complaint: VERTIGO - Chief complaint Chief Complaint: Neuro - History obtained from History obtained from: Patient - History of Present Illness Timing: Enter time (929), Today - Additonal information Additional information: 59-year-old male who is been treated for more than 10 years for melanoma was in his home today in his usual state of health in good shape when he developed acute vertigo with nausea and vomiting. He denies a headache associated with this. He did have some improvement of his symptoms and they have returned with a vengeance this evening. He has marked dizziness anytime he opens his eyes and when the medics were at his home they were able to ambulate him and he did not have any propelling vertigo. The patient has not had these symptoms previously. He has not been ill recently. He has had vomiting last ate breakfast at 530. He has had improvement in his nausea with Zofran given in the rig. Review of Systems Constitutional: denies: Fever Eyes: denies: Decreased vision Ears: denies: Ear pain Nose: denies: Rhinorrhea / runny nose, Congestion Throat: denies: Sore throat Cardiac: denies: Chest pain / pressure, Palpitations Respiratory: denies: Dyspnea, Cough GI: reports: Nausea, Vomiting. denies: Abdominal Pain : denies: Dysuria, Frequency Skin: denies: Rash Musculoskeletal: denies: Neck pain, Back pain, Extremity pain Neurologic: reports: Other (acute dizziness with eye opening). denies: Generalized weakness, Focal weakness, Numbness, Syncope, Seizure, Headache, Head injury, LOC PD PAST MEDICAL HISTORY - Past Medical History Cardiovascular: None Respiratory: None Neuro: None Endocrine/Autoimmune: None GI: None : None HEENT: None Psych: None Musculoskeletal: Osteoarthritis Derm: Other - Past Surgical History Past Surgical History: Yes General: Other - Present Medications Home Medications: Ambulatory Orders Medication Instructions Recorded Confirmed Meclizine HCl [Antivert] 25 mg PO Q6H PRN #20 tablet 07/07/20 - Allergies Allergies/Adverse Reactions: Allergies Allergy/AdvReac Type Severity Reaction Status Date / Time oxycodone [From OxyContin] AdvReac Unknown Verified 07/06/20 22:53 "narcotics" Allergy Unknown Uncoded 07/06/20 22:29 - Social History Does the pt smoke?: No Smoking Status: Never smoker Does the pt drink ETOH?: Yes Does the pt have substance abuse?: No - Immunizations Immunizations are current?: Yes - POLST Patient has POLST: No PD ED PE NORMAL - Vitals Vital signs reviewed: Yes - General General: Alert and oriented X 3, Other (laying still with eyes closed) - HEENT HEENT: Atraumatic, PERRL, EOMI, Other (2-3 beats of nystagums to the right 1-2 to the left ) - Neck Neck: Supple, no meningeal sign, No bony TTP - Cardiac Cardiac: RRR, No murmur - Respiratory Respiratory: No respiratory distress, Clear bilaterally - Abdomen Abdomen: Soft, Non tender - Back Back: No CVA TTP, No spinal TTP - Derm Derm: Normal color, Warm and dry, No rash - Extremities Extremities: No deformity, No edema - Neuro Neuro: Alert and oriented X 3, 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, No motor deficit, No sensory deficit, Normal speech Eye Opening: To Voice Motor: Obeys Commands Verbal: Oriented GCS Score: 14 - Psych Psych: Normal mood, Normal affect Results - Vitals Vitals: Vital Signs - 24 hr 07/06/20 07/07/20 07/07/20 22:26 00:00 02:30 Temperature 35.8 C L 36.3 C L Heart Rate 65 70 92 Respiratory 17 16 18 Rate Blood Pressure 158/67 H 133/64 H 140/79 H O2 Saturation 99 99 100 Oxygen O2 Source Room air - Rads (name of study) CT head w/o Radiology: Prelim report reviewed (Impression: No acute process), EMP read indepedently, See rad report PD MEDICAL DECISION MAKING - ED course Complexity details: reviewed old records, reviewed results, re-evaluated patient, considered differential, d/w patient ED course: 59-year-old male with acute labyrinthitis has the usual dramatic dizziness and vomiting associated with acute onset and he has improvement with treatment. Here in the emergency department he is administered a liter of saline 10 mg of dexamethasone and 25 mg of meclizine. Over period of about an hour he has improvement he is able to open his eyes and move about without severe symptoms. Is given instructions for the Ricardo maneuver and a prescription for meclizine and he is discharged with a dose of meclizine for use this evening if needed. I felt it important given the patient's history of long treated melanoma to rule out an obvious intracranial mass as a cause for his acute dizziness and a CT scan of the head without contrast was undertaken which was unremarkable. The patient felt improved after treatment and we did attempt an Ricardo maneuver the seem to make things worse for the patient and he required an additional stay in the emergency department additional meclizine and eventually felt improved and was able to go home. Departure - Departure Disposition: 01 Home, Self Care Clinical Impression: Labyrinthitis Qualifiers: Laterality: bilateral Qualified Code(s): H83.03 - Labyrinthitis, bilateral Condition: Stable Instructions: ED Labyrinthitis Follow-Up: Satish Pope MD [Primary Care Provider] - Prescriptions: Meclizine HCl [Antivert] 25 mg PO Q6H PRN #20 tablet PRN Reason: Dizziness Discharge Date/Time: 07/07/20 06:28
[2020-07-07] MEDS ORDERED: MECLIZINE 12.5 MG TABLET PO STA ×2 (00:07→05:45)
[2020-07-07] MEDS ORDERED: ONDANSETRON 4 MG/2 ML VIAL IVP STA (01:16)
[2020-07-07] MEDS ORDERED: ONDANSETRON ODT 4 MG Prepack 2 TL PRN (01:16)
[2020-07-07] MEDS ORDERED: ONDANSETRON 4 MG/2 ML VIAL ONE (01:27)
[2020-07-07 02:48] VITALS: BP 140/79
--- NOTE | 2020-07-07 11:11 | CT Report ---
PROCEDURE: HEAD WO INDICATIONS: vertigo history of melenoma TECHNIQUE: Noncontrast 4.5 mm thick angled axial sections acquired from the foramen magnum to the vertex. For r adiation dose reduction, the following was used: automated exposure control, adjustment of mA and/or kV according to patient size. COMPARISON: CT head 12/29/2012 FINDINGS: Image quality: Excellent. CSF spaces: Basal cisterns are patent. No extra-axial fluid collections. Ventricles are normal in size and shape. Brain: No midline shift. No intracranial masses or hemorrhage. Dolan-white matter interface is norm al. Skull and face: Calvarium demonstrates left parietal occipital craniotomy changes. Sinuses: Visualized sinuses and mastoids are clear. IMPRESSION: 1. No acute intracranial process. The above findings are concordant with preliminary report. Reviewed by: Jenny Callejas MD on 07/07/2020 11:09 AM PST Approved by: Jenny Callejas MD on 07/07/2020 11:09 AM PST Station ID: [id number]
== END 2020-07-07 06:28 | disposition home or self-care (01) ==
LOC: EDUNIT# → SUPCPDRO 22:21 → ED 22:21
DX: H83.03 Labyrinthitis, bilateral (principal); R11.2 Nausea with vomiting, unspecified; Z85.820 Personal history of malignant melanoma of skin
CPT/HCPCS: 70450; 96374; 96375; 99284; A9270

== ENCOUNTER 2021-04-08 16:18 | Outpatient (CLI) | payer MEDICARE, OTHER ==
[2021-04-08 20:04] LABS: BASOPHILS % (AUTO) 0.7 %; EOSINOPHILS # (AUTO) 0.1 10^3/uL (0.0-0.7); EOSINOPHILS % (AUTO) 1.8 %; HCT - HEMATOCRIT 41.4 % (42.0-52.0); HGB - HEMOGLOBIN 13.7 g/dL (14.0-18.0); LYMPHOCYTES # (AUTO) 1.3 10^3/uL (1.5-3.5); LYMPHOCYTES % (AUTO) 28.7 %; MEAN CORPUSCULAR HEMOGLOBIN 30.6 pg (27.0-31.0); MEAN CORPUSCULAR HGB CONC 33.1 g/dL (32.0-36.0); MEAN CORPUSCULAR VOLUME 92.6 fL (80.0-94.0); MEAN PLATELET VOLUME 10.7 fL (7.4-11.4); MONOCYTES # (AUTO) 0.4 10^3/uL (0.0-1.0); MONOCYTES % (AUTO) 9.5 %; NEUTROPHILS # (AUTO) 2.6 10^3/uL (1.5-6.6); NEUTROPHILS % (AUTO) 59.1 %; PLT - PLATELET COUNT 228 10^3/uL (130-450); RED BLOOD COUNT 4.47 10^6/uL (4.70-6.10); WHITE BLOOD COUNT 4.4 x10^3/uL (4.8-10.8)
[2021-04-08 20:18] LABS: ALBUMIN 4.3 g/dL (3.2-5.5); ALBUMIN/GLOBULIN RATIO 1.7 (1.0-2.2); ALKALINE PHOSPHATASE 58 IU/L (42-121); ALT ALANINE AMINOTRANSFERASE 21 IU/L (10-60); AST ASPARTATE AMINOTRANSFERASE 21 IU/L (10-42); BILIRUBIN,TOTAL 0.5 mg/dL (0.2-1.0); BUN - BLOOD UREA NITROGEN 21 mg/dL (6-20); CALCIUM 8.8 mg/dL (8.5-10.3); CARBON DIOXIDE - CO2 29 mmol/L (21-32); CHLORIDE 101 mmol/L (101-111); CHOL/HDL RATIO 3.4 (<5.0); CHOLESTEROL 188 mg/dL; CREATININE 0.8 mg/dL (0.6-1.2); GFR - MDRD 99 (>89); GLUCOSE 88 mg/dL (70-100); HDL CHOLESTEROL 55 mg/dL; LDL CHOLESTEROL,CALCULATED 108 mg/dL; POTASSIUM 3.5 mmol/L (3.5-5.0); SODIUM 138 mmol/L (135-145); TOTAL PROTEIN 6.8 g/dL (6.7-8.2); TRIGLYCERIDES 126 mg/dL; VLDL CHOLESTEROL 25 mg/dL
== END 2021-04-08 16:19 | disposition home or self-care (01) ==
LOC: LAB.S 16:18
PROVIDERS: ATTEND Internal Medicine
DX: Z79.899 Other long term (current) drug therapy (principal); Z13.220 Encounter for screening for lipoid disorders; Z12.5 Encounter for screening for malignant neoplasm of prostate
CPT/HCPCS: 36415; 80053; 80061; 85025; G0103; 83721; 84153